=== PATIENT | female | born 1975 | race Caucasian/White ===

== ENCOUNTER 2020-01-08 16:51 | Emergency (ER) | payer OTHER, SELFPAY ==
--- NOTE | ~2020-01-08 | XR_ITS ---
EXAMINATION: XR foot LT min 3V EXAM DATE: 01/08/2020 17:27 INDICATION: Injury one month ago. Dropped a brick, landed on top of foot. Palpable knot on anterior 2 nd-3rd metatarsophalangeal joints. TECHNIQUE: Left foot dorsoplantar, lateral and oblique projections obtained and reviewed. Comparison is made to prior examination from 12/27/2015. 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 There is moderate 1st MTP hallux valg us, and mild osteoarthritis. Tiny inferior calcaneal spur. There are no acute fractures or dislocatio ns identified. There is no subcutaneous gas. The soft tissue is unremarkable. There are no radiop aque foreign bodies. There are no bony erosions identified. IMPRESSION: 1. Moderate left hallux valgus. 2. Mild 1st MTP osteoarthritis. Reviewed, dictated and finalized at location A.
[2020-01-08 17:00] VITALS: BP 118/74; PULSE 100; RESP 20; TEMP 37.3; O2SAT 98
--- NOTE | 2020-01-08 17:13 | ED.LOWEXIN ---
HPI - Extremity Injury (Lower) General Chief Complaint: Extremity Injury, Lower Stated Complaint: Knot on foot Time Seen by Provider: 01/08/20 17:13 Source: patient and RN notes reviewed History of Present Illness HPI Narrative: Patient is a 44-year-old female who presents the urgent care with complaints of a lump to the left foot . Patient states that she dropped a brick on the foot approximately 1 month ago and 5 days ago she noticed the lump. Patient denies of any pain. States that she has not needed any pain medicine and tries to stay away from medications considering she is 150 days clean of narcotic abuse. No other acute complaints. Normal gait with normal left lower extremity range of motion. No acute distress noted. Patient read the plan of care. Related Data Home Medications Medication Instructions Recorded Confirmed atenolol 25 mg PO DAILY 01/08/20 01/08/20 cyclobenzaprine 10 mg PO DAILY 01/08/20 01/08/20 loratadine 10 mg PO DAILY 01/08/20 01/08/20 venlafaxine 150 mg PO DAILY 01/08/20 01/08/20 Allergies Allergy/AdvReac Type Severity Reaction Status Date / Time Sulfa (Sulfonamide Allergy Unknown Verified 09/14/14 10:11 Antibiotics) Review of Systems Review of Systems: Narrative: CONSTITUTIONAL: Denies fever, chills, or sweats. EYES: Denies visual changes, redness, or discharge. ENT: Denies rhinorrhea, congestion, sore throat, or otalgia. CARDIOVASCULAR: Denies chest pain, palpitations, or edema. RESPIRATORY: Denies cough or dyspnea. GASTROINTESTINAL: Denies abdominal pain, nausea, vomiting, or diarrhea. GENITOURINARY: Denies dysuria or hematuria. SKIN: Denies rash or itching. MUSCULOSKELETAL: Reports of a lump to the left foot NEUROLOGIC: Denies headache, numbness, or weakness. All other systems reviewed are negative, except as documented in HPI. PMFSH Social History Social History Smoking status: Never smoker Alcohol intake: never Comments At the time of my signature, I reviewed and agree with the nursing past medical, surgical, social, and family history. There is no relevant family history pertinent to the patient complaint. Exam Narrative: Exam Narrative: GENERAL: This is a well-nourished, well-developed patient, in no apparent distress. HEAD: normocephalic, atraumatic. EYES: PERRL. Sclera clear/white. Vision is grossly intact. EARS: External ears normal NOSE: External nose normal with no obvious nasal discharge, nares without redness, no rhinorrhea. THROAT: Mucous membranes moist NECK: Neck supple SKIN: warm, intact with no suspicious lesions or rash, good texture and turgor. NEURO: awake, alert, and oriented to person, place and time. There were no obvious focal neurologic abnormalities. EXTREMITIES: Range of motion the left lower extremity within normal limits with positive strong left pedal pulse and capillary refill less than 2 seconds. Approximately 1 cm diameter ganglion cyst noted to the central aspect of the left dorsal foot without tenderness Course Vital Signs Vital signs: Vital Signs Temperature 99.1 F 01/08/20 17:00 Pulse Rate 100 01/08/20 17:00 Respiratory Rate 01/08/20 17:00 Blood Pressure 118/74 01/08/20 17:00 Pulse Oximetry 98 01/08/20 17:00 Temperature 99.1 F 01/08/20 17:00 Pulse Rate 100 01/08/20 17:00 Respiratory Rate 01/08/20 17:00 Blood Pressure 118/74 01/08/20 17:00 Pulse Oximetry 98 01/08/20 17:00 Reviewed MDM - Extremity Injury (Lower) MDM Narrative Medical decision making narrative: Reviewed x-ray results with the patient. She is aware that there is notable osteoarthritis as well as a large bunion seen on the x-ray. However, no fractures noted. The area is likely soft tissue swelling from either a ganglion cyst or recent trauma. Elevate the foot and use ice as needed. Use Tylenol/ibuprofen as needed for pain. Wear supportive shoe. May use an Tommy wrap lightly wrapped around the foot for comfort and suppo
== END 2020-01-08 17:48 | disposition home or self-care (01) ==
PROVIDERS: Emergency Provider Nurse Practitioner Family; PCP Internal Medicine
DX: M67.472 Ganglion, left ankle and foot (principal); M19.072 Primary osteoarthritis, left ankle and foot; I10 Essential (primary) hypertension; M19.90 Unspecified osteoarthritis, unspecified site; F41.9 Anxiety disorder, unspecified; F32.9 Major depressive disorder, single episode, unspecified
CPT/HCPCS: 73630; 99213; G0463

== ENCOUNTER 2020-10-10 16:46 | Emergency (ER) | payer OTHER, SELFPAY ==
--- NOTE | ~2020-10-10 | XR_ITS ---
EXAMINATION: XR lumbar spine 2-3V EXAM DATE: 10/10/2020 19:51 INDICATION: Tailbone pain for one year. TECHNIQUE: Lumber spine frontal, lateral, lateral L5-S1 projections for interpretation. There is no prior study for comparison. FINDINGS: Chronic bilateral L5 spondylolysis with grade 2 anterolisthesis L5 on S1, moderate to sever e loss of the disc height. Otherwise mild lumbar spondylosis. There are no acute fractures identified . Sacrum, sacroiliac joints, sacral arcuate lines are intact. Paraspinal soft tissue is unremarkable. IMPRESSION: Chronic L5 spondylolysis, grade 2 anterolisthesis and moderate to severe loss of disc he ight. Reviewed, dictated and finalized at location A. IMPRESSION: Chronic L5 spondylolysis, grade 2 anterolisthesis and moderate to severe loss of disc height.
[2020-10-10 17:09] VITALS: BP 147/94; PULSE 95; RESP 16; TEMP 36.1; O2SAT 99
[2020-10-10 19:37] VITALS: BP 140/75; PULSE 92; RESP 20; TEMP 36.1; O2SAT 98
[2020-10-10] MEDS: ORPHENADRINE CITRATE 100 MG TABLET.ER PO (19:55)
[2020-10-10] MEDS: MECLIZINE HCL 25 MG TABLET PO (19:55)
[2020-10-10] MEDS: KETOROLAC (*BKC) 60 MG/2 ML VIAL IM (19:56)
--- NOTE | 2020-10-10 20:08 | ED.GENADULT ---
HPI - General Adult General Chief complaint: Unspecified Stated complaint: vertigo, back pain Time Seen by Provider: 10/10/20 19:29 History of Present Illness HPI narrative: Patient is a 45-year-old female who presents the emergency department with chief complaint of back pain. Patient reports that has history low back pain and then started having pain in the low lumbar region that radiates down bilateral paresthesias. Patient reports that she has had no bowel or bladder dysfunction reports no numbness in her feet reports she has no foot drop. Patient states that it is all pain there is no paresthesias or focal neurological deficit Related Data Home Medications Medication Instructions Recorded Confirmed atenolol 25 mg PO DAILY 01/08/20 01/08/20 cyclobenzaprine 10 mg PO DAILY 01/08/20 01/08/20 loratadine 10 mg PO DAILY 01/08/20 01/08/20 venlafaxine 150 mg PO DAILY 01/08/20 01/08/20 Allergies Allergy/AdvReac Type Severity Reaction Status Date / Time Sulfa (Sulfonamide Allergy Unknown Verified 09/14/14 10:11 Antibiotics) Review of Systems Review of Systems: Narrative: A 10 system review of systems was completed on the patient and is negative except for what is stated in the HPI. Nursing and ancillary documentation was reviewed. [facility] Social History Social History Smoking status: Never smoker Alcohol intake: never Exam Narrative: Exam Narrative: GENERAL: Well-appearing, well-nourished, and in no acute distress. HEAD: Normocephalic, atraumatic. EYES: PERRLA and EOMI. ENT: Nares clear, no rhinorrhea or epistaxis. Mucous membranes moist. NECK: Supple. CHEST: Clear to auscultation. No respiratory distress. HEART: Regular rate and rhythm. No murmur heard. Normal peripheral pulses. ABDOMEN: Soft, nontender, nondistended, normal active bowel sounds. EXTREMITIES: Normal range of motion. No edema. Tenderness bilateral SI joints SKIN: Warm, dry, no rash. NEURO: No focal deficits. Alert and oriented x3. PSYCH: Normal mood and affect. Course Vital Signs Vital signs: Vital Signs Temperature 36.1 C L 10/10/20 17:09 Pulse Rate 95 10/10/20 17:09 Respiratory Rate 16 10/10/20 17:09 Blood Pressure 147/94 H 10/10/20 17:09 Pulse Oximetry 99 10/10/20 17:09 Temperature 36.1 C L 10/10/20 19:37 Pulse Rate 92 10/10/20 19:37 Respiratory Rate 20 10/10/20 19:37 Blood Pressure 140/75 10/10/20 19:37 Pulse Oximetry 98 10/10/20 19:37 Medical Decision Making Vital Signs Vital Signs: Vital Signs Temperature 36.1 C L 10/10/20 17:09 Pulse Rate 95 10/10/20 17:09 Respiratory Rate 16 10/10/20 17:09 Blood Pressure 147/94 H 10/10/20 17:09 Pulse Oximetry 99 10/10/20 17:09 Temperature 36.1 C L 10/10/20 19:37 Pulse Rate 92 10/10/20 19:37 Respiratory Rate 20 10/10/20 19:37 Blood Pressure 140/75 10/10/20 19:37 Pulse Oximetry 98 10/10/20 19:37 Discharge Plan Discharge Clinical Impression: Vertigo, Low back pain, Sciatica, DJD (degenerative joint disease) Patient Disposition: Home, Self-Care Condition: Stable Instructions: Antibiotic Form, Vertigo (ED), Sciatica (ED), Acute Low Back Pain (ED) Prescriptions: New methylprednisolone [Medrol (Suresh)] 4 mg tablets,dose pack See Rx Instructions PO .COMPLEX Qty: 21 RF: 0 meclizine 25 mg tablet 25 mg PO TID PRN (Reason: dizziness) Qty: 21 RF: 0 meloxicam 15 mg tablet 15 mg PO DAILY Qty: 14 RF: 0 orphenadrine citrate 100 mg tablet extended release 100 mg PO Q12H Qty: 20 RF: 0 No Action cyclobenzaprine 10 mg tablet 10 mg PO DAILY RF: 0 atenolol 25 mg tablet 25 mg PO DAILY RF: 0 venlafaxine 150 mg capsule,extended release 24hr 150 mg PO DAILY RF: 0 loratadine 10 mg tablet 10 mg PO DAILY RF: 0 Follow-up/Referrals: Abelardo,MD Judd [Primary Care Provider] - Time of Disposition: 2
[2020-10-10 21:14] VITALS: BP 117/66; PULSE 84; RESP 20; O2SAT 98
== END 2020-10-10 21:14 | disposition home or self-care (01) ==
PROVIDERS: Emergency Provider Emergency Medicine; PCP Internal Medicine
DX: R42 Dizziness and giddiness (principal); M54.42 Lumbago with sciatica, left side; M54.41 Lumbago with sciatica, right side; M19.90 Unspecified osteoarthritis, unspecified site
CPT/HCPCS: 72100; 96372; 99283; A9270; J1885